=== PATIENT | female | born 1955 | race Two or more races ===

== ENCOUNTER 2017-10-22 08:16 | Day surgery (SDC) | payer OTHER ==
[~2017-10-22] VITALS: Ht 160 cm; Wt 70.8 kg
[2017-10-22 08:55] VITALS: BP 125/76
[2017-10-22 11:27] VITALS: BP 138/88
== END 2017-10-22 11:20 | disposition home or self-care (01) ==
LOC: DS 08:16 → OR 09:30 → GI 09:30 → DS 11:20
PROVIDERS: Internal Medicine Gastroenterology
PROC: 0DB68ZX Excision of Stomach, Via Natural or Artificial Opening Endoscopic, Diagnostic (ICD-10-PCS; principal; 2017-10-22 09:30)
DX: K22.10 Ulcer of esophagus without bleeding (principal); K21.9 Gastro-esophageal reflux disease without esophagitis; K44.9 Diaphragmatic hernia without obstruction or gangrene
CPT/HCPCS: 43235; J1200; J1610; J2250; J2310; J3010; J3490

== ENCOUNTER 2018-09-09 07:44 | Day surgery (SDC) | payer OTHER | END 2018-09-09 14:25 | disposition home or self-care (01) | LOC: DS 07:44 → GI 10:30 → OR 10:30 → DS 14:25 ==